=== PATIENT | female | born 1990 | race Caucasian/White ===

== ENCOUNTER 2021-01-20 12:03 | Inpatient (IN) | payer BC ==
--- NOTE | 2021-01-20 14:34 | PR ---
[facility] [address] [facility] [place], [place] [address] Signed Progress Notes IP Datetime Report Generated by CPN: 01/20/2021 14:34 PROGRESS NOTES: [id number] Procedures: Artificial ROM Plan: Continue Present Management VITAL SIGNS: [id number] Vital Signs: Reviewed; Within Normal Limits EXAM: [id number] Dilatation: 4.0 Effacement: 80 Station: -2 Contractions: irregular MEMBRANES: [id number] Membranes Status: Ruptured Comments: 30 yo @ 39 2/7 weeks gestation AROM performed without difficulty or complication. head well-applied to cervix, large amount clear odorless fluid. Plan: recheck in 2 hours unless contractions intensify before then FETUS A: [id number] FHR Baseline: 135 Variability: Moderate 6-25bpm Accelerations: 15X15 Decelerations: None FHR Category: Category I FETUS B: [id number] Signing Physician: Nyasia Priest DO Copies: ~ *Electronically Signed* 01/20/21 1434 NYASIA PRIEST DO PATIENT NAME: RODERICK LONG TESSY PROGRESS NOTE DATE OF : 89 PHYSICIAN: NYASIA PRIEST DO RPT #: [id number] REPORT IS CONFIDENTIAL AND NOT TO BE RELEASED WITHOUT AUTHORIZATION
--- NOTE | 2021-01-21 10:23 | PR ---
[facility] [address] [facility] [place], [place] [address] Signed PP Progress Notes Datetime Report Generated by CPN: 01/21/2021 10:23 SUBJECTIVE: [id number] Pain: Within Normal Limits Nausea/Vomiting: Denies Flatus: Yes Vital Signs: [id number] Vital Signs: Reviewed; Within Normal Limits Cardiovascular: Normal Respiratory: Normal Abdomen/Uterus: Normal Lochia: Normal Vulva/Perineum: Normal Breasts: Normal CVA Tenderness: Normal Extremities: Normal Progress: Normal Exam Comments: NAD, sitting in bed holding baby RRR No dyspnea/retractions Abd SNTND, FFBU Ext 1+ pitting edema BLLE IMPRESSION/PLAN/PROCEDURES: [id number] Impression: Normal Progression Plan: Continue Present Management; Discharge Progress Notes: PPD#1 s/p @ 39.2 weeks gestation admitted for IOL for hypothyroid/elective Hgb 13.2 this am, meeting milestones Lochia light, ambulating, voiding, tolerating regular diet Pain well controlled with motrin without difficulty Requesting DC to home [facility], plan for DC @ 24h PP Signing Physician: Nyasia Priest DO Copies: *Electronically Signed* 01/21/21 1023 NYASIA PRIEST DO PATIENT NAME: RODERICK LONG PROGRESS NOTE DATE OF : 91 PHYSICIAN: NYASIA PRIEST DO RPT #: [id number] REPORT IS CONFIDENTIAL AND NOT TO BE RELEASED WITHOUT AUTHORIZATION [facility] [address] [facility], [place] [address] Signed ~ *Electronically Signed* 01/21/21 1023 NYASIA PRIEST DO PATIENT NAME: RODERICK LONG PROGRESS NOTE DATE OF : 91 PHYSICIAN: NYASIA PRIEST DO RPT #: [id number] REPORT IS CONFIDENTIAL AND NOT TO BE RELEASED WITHOUT AUTHORIZATION
== END 2021-01-21 22:16 | disposition home or self-care (01) | DRG 807 ==
LOC: FBC 12:03
PROVIDERS: ADMIT Obstetrics & Gynecology; ATTEND Obstetrics & Gynecology
PROC: 10E0XZZ Delivery of Products of Conception, External Approach (ICD-10-PCS; principal; 2021-01-20)
PROC: 10907ZC Drainage of Amniotic Fluid, Therapeutic from Products of Conception, Via Natural or Artificial Opening (ICD-10-PCS; 2021-01-20)
PROC: 00HU33Z Insertion of Infusion Device into Spinal Canal, Percutaneous Approach (ICD-10-PCS; 2021-01-20)
PROC: 3E0R3BZ Introduction of Anesthetic Agent into Spinal Canal, Percutaneous Approach (ICD-10-PCS; 2021-01-20)
DX: O99.284 Endocrine, nutritional and metabolic diseases complicating childbirth (principal); Z37.0 Single live birth; E03.9 Hypothyroidism, unspecified; Z3A.39 39 weeks gestation of pregnancy; Z20.822 Contact with and (suspected) exposure to COVID-19
CPT/HCPCS: 01960; 85027; J2590; J2795; J3010; U0003